=== PATIENT | female | born 1955 | race Caucasian/White ===

== ENCOUNTER 2021-05-24 03:02 | Day surgery (SDC) | payer BC, SELFPAY ==
[2021-05-18 09:22] VITALS: BMI 23.4
--- NOTE | 2021-05-21 11:52 | PM.IMHP ---
H&P: HPI History of Present Illness Date/Time: 05/21/21 11:52 65-year-old female patient of who presents today for arthroscopy of her right knee with partial medial meniscectomy and decompression of medial meniscal cyst. She has been having symptoms on off on this knee for several years. They have recently worsened. She was initially seen in the office on 02/19 after initial evaluation patient was found have some [id number] medial compartment arthritis but having significant symptoms in the medial compartment. She was sent for MRI scan of the knee. MRI scan shows complex tear posterior horn medial meniscus with a large meniscal cyst coming from the tear. Patient has been having symptoms on a daily basis. Treatment options were discussed with her. She felt she would like to proceed with arthroscopy for the tear of the medial meniscus as well as decompression the meniscal cyst. Chief Complaint: right knee medial menicus tear with meniscal cyst Review of Systems Review of Systems: All systems reviewed & are unremarkable except as noted in HPI and below PMFSH Social History Social History Smoking status: Never smoker Substance use: never Living arrangements: with family Gender identity (if verbalized by the patient): Female Sexual Orientation (if Verbalized by the Patient): Straight or Heterosexual Spiritual care concerns: No Meds Home Medications and Allergies Home Medications Medication Instructions Recorded Confirmed Type albuterol 90 mcg INHALATION Q2-3H PRN 05/18/21 05/18/21 History amlodipine 5 mg PO BID 05/18/21 05/18/21 History atorvastatin 10 mg PO DAILY 05/18/21 05/18/21 History cholecalciferol (vitamin D3) 1,000 unit PO DAILY 05/18/21 05/18/21 History [Vitamin D3] tramadol 50 mg PO 4-6XD PRN 05/18/21 05/18/21 History Allergies Allergy/AdvReac Type Severity Reaction Status Date / Time Sulfa (Sulfonamide AdvReac Severe Swelling Verified 05/18/21 09:11 Antibiotics) of Lip/Tongue/Throat MEPERIDINE HCL AdvReac Severe Nausea and Uncoded 05/18/21 09:12 Vomiting Exam Narrative: Exam Narrative: 65-year-old female alert pleasant. She is 5 ft 5 143 lb. She has a prominent start of limp. Range of motion of the right knee is from 0-135 degrees. There is no definite effusion. Moderately severe tenderness over the mid and posterior medial joint line. Mild to moderate pain with patellofemoral grind. Normal stability in the knee. Smita's testing causes her significant medial joint line pain. Hip range of motion, she flexes to 120 which caused her some posterior lateral hip pain, externally rotates to 40 internally rotates to 20 without discomfort. Stinchfield maneuver causes her some mild mid thigh pain. She has normal abduction strength in lateral position. 2+ dorsalis pedis and posterior tibial artery pulse. Resp: Auscultation: clear to auscultation bilaterally Cardio: Rate: regular rate Rhythm: regular rhythm Assessment and Plan Additional Plan 65-year-old female with a prominent tear of the posterior horn of the medial meniscus with a meniscal cyst. She is having symptoms on a regular basis. Dr. Calles discussed treatment options with her including surgical and nonsurgical treatment. She would like to proceed with arthroscopy with partial medial meniscectomy and decompression of the cyst. Surgical procedure as well as risks and complications were discussed in detail all questions were answered and we will proceed patient will avoid her Naprosyn and any other aspirin or ibuprofen products 1 week prior surgery she will see her primary care doctor for pre-surgical clearance.
[2021-05-24] VITALS (9 sets, daily range): BP systolic 92–151; BP diastolic 53–71; PULSE 44–57; RESP 9–18; TEMP 36.1–36.7; O2SAT 96–100
[2021-05-24] MEDS: LACTATED RINGERS 1,000 ML 30 ML IV CONT (10:45)
--- NOTE | 2021-05-24 10:45 | WPDANESEPPF ---
Anes - Initial Pre Proc Eval Procedure: Operation Date: 05/24/21 12:00 Proposed Procedures p Right Knee Arthroscopy, Partial Medial Meniscectomy, Decompression Meniscal Cyst, Proceed As Indicated - Carlo Calles MD Date/Time: 05/24/21 10:45 Surgeon: Carlo Calles MD Pre Op Diagnosis: Right medial meniscus tear Patient Data Age: 65 Gender: F Height: 1.65 m Weight: 64 kg Allergies Allergy/AdvReac Type Severity Reaction Status Date / Time meperidine AdvReac Severe Nausea and Verified 05/24/21 08:09 Vomiting Sulfa (Sulfonamide AdvReac Severe Swelling Verified 05/18/21 09:11 Antibiotics) of Lip/Tongue/Throat Home Medications Medication Instructions Recorded Confirmed Type albuterol 90 mcg INHALATION Q2-3H PRN 05/18/21 05/18/21 History amlodipine 5 mg PO BID 05/18/21 05/18/21 History atorvastatin 10 mg PO DAILY 05/18/21 05/18/21 History cholecalciferol (vitamin D3) 1,000 unit PO DAILY 05/18/21 05/18/21 History [Vitamin D3] tramadol 50 mg PO 4-6XD PRN 05/18/21 05/18/21 History Patient hx anesthesia problems: none Family hx anesthesia problems: none PMFSH Past Medical History Medical History (Updated 05/24/21 @ 10:46 by Shahid Resendiz DO) Asthma GERD (gastroesophageal reflux disease) Hyperlipidemia Hypertension IBS (irritable bowel syndrome) MVP (mitral valve prolapse) Surgical History Surgical History (Updated 05/24/21 @ 10:46 by Shahid Resendiz DO) History of History of hysterectomy Social History Social History Smoking status: Never smoker Substance use: never Living arrangements: with family Gender identity (if verbalized by the patient): Female Sexual Orientation (if Verbalized by the Patient): Straight or Heterosexual Spiritual care concerns: No Anes - Eval Final PreProcedure Day of Procedure 05/24/21 10:45 Patient weight: normal Heart: regular rate and rhythm Lungs: clear to auscultation and normal air movement Airway: Mallampati scale class II Neurological: alert and oriented Last oral intake: >/= 8 hours ASA classification: III Emergent: no Anesthetic plan: proceed Anesthesia type and monitoring: general LMA and standard monitoring Informed Consent: The patient's anesthetic plan and its attendant risks and benefits were discussed with the patient/family/POA. Questions were solicited and answers provided to the satisfaction of the patient/family/POA.
[2021-05-24] MEDS: ACETAMINOPHEN 500 MG TABLET 1000 MG PO (10:48)
[2021-05-24] MEDS: KETOROLAC 15 MG/ML VIAL (*BKC) IV PUSH (10:48)
--- NOTE | 2021-05-24 11:00 | WPDHPUPDATE1 ---
History and Physical Update Update Date/Time: 05/24/21 11:00 History and Physical has been reviewed, including an updated exam of the patient. There are NO changes in the patient's condition. Risks, benefits, and alternatives have been discussed and questions answered. Patient agrees to proceed with procedure.
--- NOTE | 2021-05-24 11:04 | SUR.PREOP ---
PT STATES SHE KNOWS HOW TO USE CRUTCHES
[2021-05-24] MEDS: ceFAZolin 2 GM/D5W 50 ML 2 GM/50 ML BAG IVPB (11:08)
[2021-05-24] MEDS: LIDO 1%/EPINEPHRINE 1:100,000 20 ML VIAL 30 ML INFILTRATE (11:44)
--- NOTE | 2021-05-24 12:09 | W.PM.PROC2 ---
Procedure Note - Detailed Date of Procedure 05/24/21 Pre-op Diagnosis Right medial meniscus tear, meniscal cyst Post-op Diagnosis same Procedure Performed arthroscopic partial medial meniscectomy left which included decompression of the meniscal cyst with the 3 5 shaver through the horizontal cleavage tear. 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 She received 2 g of Ancef preoperatively. The left leg was prepped draped usual fashion. 1% lidocaine with epinephrine was injected into the portal sites for postoperative analgesia. Standard arthroscopic portals were placed. We viewed the medial compartment 1st. There was moderate chondromalacia diffusely on the medial femoral condyle. There is minimal delamination which was minimally trimmed with a shaver. There was a complex tear of the posterior horn of the medial meniscus which had a radial component centrally. This involved more the inferior flap. Arthroscopic partial medial meniscectomy was carried out with alternating punch and motorized shaver viewing from the anterolateral portal. This was transitioned to the posterior root and transitioned to the midbody. This left the periphery of the meniscus with a horizontal cleavage but equal superior and inferior leaflets that were stable to probing. I estimate this was the peripheral 35% of the posterior horn of the meniscus. ACL looked normal. The arthroscope was placed in the anteromedial portal in the lateral compartment was completely normal. With the arthroscope in the anteromedial portal the 3.5 full-radius shaver was used to further transition the midbody. The meniscal cyst emanated from the most medial aspect of the horizontal cleavage tear and this was entered with the 3.5 full-radius shaver without difficulty through the medial aspect of the horizontal tear of the medial meniscus and we did a quick circumferential shaving of the opening to allow cyst decompression into the joint through the tear. The patellofemoral joint was evaluated and there was mild diffuse chondromalacia of the patella and the trochlea showed minimal diffuse chondromalacia in its distal aspect. There were no loose bodies in the joint. The portals were closed with 5 0 nylon suture. There were no complications.
[2021-05-24] MEDS: fentaNYL CITRATE INJ (*CRX) 100 MCG/2 ML VIAL 25 MCG IV PUSH ×2 (12:42→12:57)
[2021-05-24] MEDS: ONDANSETRON INJ 4 MG/2 ML VIAL IV PUSH (14:13)
== END 2021-05-24 14:30 | disposition home or self-care (01) ==
PROVIDERS: Visit Provider Orthopaedic Surgery
PROC: (CPT 29870; principal; 2021-05-24 12:00)
DX: M23.321 Other meniscus derangements, posterior horn of medial meniscus, right knee (principal); M23.006 Cystic meniscus, unspecified meniscus, right knee; M17.11 Unilateral primary osteoarthritis, right knee; M22.41 Chondromalacia patellae, right knee; I10 Essential (primary) hypertension; E78.5 Hyperlipidemia, unspecified; I34.1 Nonrheumatic mitral (valve) prolapse; K21.9 Gastro-esophageal reflux disease without esophagitis; J45.909 Unspecified asthma, uncomplicated; K58.9 Irritable bowel syndrome, unspecified; Z79.51 Long term (current) use of inhaled steroids
CPT/HCPCS: 29881; A9270; J0690; J1885; J2250; J2405; J2704; J3010; J7120

== ENCOUNTER 2023-04-03 09:04 | Outpatient (CLI) | payer MEDICARE, SELFPAY ==
--- NOTE | ~2023-04-03 | MR_ITS ---
EXAMINATION: MR shoulder LT wo con DATE: 04/03/2023 09:50 INDICATION: Nontraumatic incomplete tear of the left rotator cuff TECHNIQUE: Magnetic resonance imaging (MRI) of the left shoulder was performed without intravenous co ntrast. Sequences included axial PD-weighted FS FSE, coronal oblique PD-weighted FS FSE, coronal obli que T2-weighted FS FSE, sagittal PD-weighted FS FSE, and sagittal T1-weighted SE. COMPARISON: None. FINDINGS: Coracoacromial arch: The acromion undersurface is flat in morphology (type I). The coracoacromial ligament is normal. Mild acromioclavicular osteoarthritis. Rotator cuff: There are suture anchors along the greater tuberosity consistent with prior rotator cuff repair. The repair appears grossly intact with no evident tear defect or retracted tear margin to suggest a recur rent tear. There is moderate supraspinatus and mild infraspinatus tendinopathy. The teres minor tendo n is normal. Minimal subscapularis tendinopathy without tear. Normal rotator cuff muscle bulk and sig nal. Biceps tendon, glenoid labrum and glenohumeral cartilage: Tenodesis of the long head biceps tendon with anchor site located along the proximal most diaphysis c audal to the intertubercular groove. There is a tear of the posterior glenoid labrum beginning at the 11:00 position and extending inferiorly to the 7:00 position. Additional small tear at the 5:00-4:00 position of the anteroinferior labrum. Small region of partial-thickness chondral ulceration with de ep fissuring at the apex and anteroapical aspect of the humeral head. Additional small deep chondral fissure at the superomedial aspect of the humeral head. Glenoid cartilage appears relatively preserve d with tiny marginal osteophytes along the inferior glenoid. Fluid: Minimal glenohumeral joint effusion. No loose osteochondral bodies. No abnormal fluid signal in the s ubacromial/subdeltoid bursa to suggest bursitis. Bones: Normal marrow signal with no edema, fracture or pathologic marrow replacing process. IMPRESSION: 1. Changes of an intact appearing rotator cuff repair likely of the supraspinatus tendon with moderat e residual tendinopathy and potentially of the anterior infraspinatus tendon where there is mild tend inopathy. 2. Bicipital tenodesis. 3. Labral tear most extensive along much of the posterior glenoid with additional small tear anteroin feriorly. 4. Mild glenohumeral osteoarthritis with moderate grade chondromalacia along portions of the humeral head. Reviewed, dictated and finalized at location A. IMPRESSION: 1. Changes of an intact appearing rotator cuff repair likely of the supraspinat us tendon with moderate residual tendinopathy and potentially of the anterior i nfraspinatus tendon where there is mild tendinopathy. 2. Bicipital tenodesis. 3. Labral tear most extensive along much of the posterior glenoid with addition al small tear anteroinferiorly. 4. Mild glenohumeral osteoarthritis with moderate grade chondromalacia along po rtions of the humeral head.
== END 2023-04-03 09:05 | disposition home or self-care (01) ==
DX: M75.112 Incomplete rotator cuff tear or rupture of left shoulder, not specified as traumatic (principal); M75.22 Bicipital tendinitis, left shoulder; M19.012 Primary osteoarthritis, left shoulder
CPT/HCPCS: 73221

== ENCOUNTER 2025-03-06 12:53 | Outpatient (CLI) | payer MEDICARE, SELFPAY ==
--- NOTE | ~2025-03-06 | MR_ITS ---
MRI of the left knee Clinical history: Pain Technique: Coronal proton density and proton density-weighted images, sagittal proton-density and T2 fat-sat images, and axial proton-density fat-saturated images were acquired. Findings: Anterior and posterior cruciate ligaments are intact. Medial collateral ligament and the la teral collateral ligament complex are intact. Popliteus tendon is intact. There is oblique tear of the posterior horn of the medial meniscus. Lateral meniscus intact. Articular cartilage is relatively well preserved throughout the knee. Bone marrow signals are unremar kable. Extensor mechanism is intact. Small joint effusion present. No Cornelius's cyst. Impression: Oblique tear of the posterior horn of the medial meniscus. Small joint effusion. Reviewed, dictated and finalized at location . Impression: Oblique tear of the posterior horn of the medial meniscus. Small joint effusion.
== END 2025-03-06 12:54 | disposition home or self-care (01) ==
PROVIDERS: Visit Provider Orthopaedic Surgery
DX: M25.462 Effusion, left knee (principal); S83.242A Other tear of medial meniscus, current injury, left knee, initial encounter; X58.XXXA Exposure to other specified factors, initial encounter
CPT/HCPCS: 73721

== ENCOUNTER 2025-05-08 01:13 | Day surgery (SDC) | payer MEDICARE, SELFPAY ==
[2025-04-29 12:41] VITALS: BMI 24.2
--- NOTE | 2025-04-29 12:52 | PC.NURSE ---
Report to the Outpatient Waiting Room, entrance under the green pavilion located off [facility], at time __10:00am on date __05/08/25 . Planned Procedure Time: _12:00pm .? Time changes happen often and if your time is changed the preop area will call you the afternoon before. - You and your visitor will be asked to self-screen and do not enter if you have any COVID symptoms. Please call surgeon if you need to reschedule. - A mask is optional within the hospital at this time. Patients may have clear liquids (water, carbonated beverages, clear teas, apple juice) until 3 hours prior to surgery with a maximum of 20 ounces. - No food from midnight until time of surgery and no smoking, or chewing tobacco (or any form of nicotine). No chewing gum, candy or mints. (09:00am) Take only the following medications with a SIP of water on the morning of surgery: Amlodipine, Tramadol if needed, Tyelenol if needed DO NOT STOP ANY OF YOUR OTHER PRESCRIPTION MEDICATIONS PRIOR TO SURGERY EXCEPT THE FOLLOWING Hold all vitamins and supplements for 3 days per anesthesiologist. Date to take dose is 05/04/25 Medications to discontinue per physician Meloxicam and Aspirin for [address] Vargas Date to take last dose 04/29/25 Please no make-up, nail slovenian, hairspray, perfume, deodorant, or body powder the day of surgery.? No jewelry (including any body piercings) or valuables the day of surgery, leave them at home.? Please take a shower or bath the night before, or the morning of, surgery with an antibacterial soap.? Wear comfortable, loose fitting clothing.? - Jewelry must be removed prior to entering the operating room.? Rings and piercings that are not removed may be cut off. - The hospital will not accept responsibility for valuables.? - Please leave all valuables, including medications, at home the day of surgery. If you are going home after surgery, a licensed peg driver must drive you home.? - NO public transportation without another adult if you receive anesthesia. - We recommend that an adult stay with you for 24 hours following discharge. - We also recommend that you do not drive, make important decision, drink alcoholic beverages, or take any drugs that were not prescribed by your health care provider for at least 24 hours after your discharge time. Follow any additional instructions given to you from your surgeon. Telephone instructions given to ___Patient and asked if any additional questions and then verbalized understanding. Patient advised to call surgeon office or pre surgery nurse liaison [phone] if any additional questions.
--- NOTE | 2025-05-07 11:53 | PM.IMHP ---
H&P: HPI History of Present Illness Date/Time: 05/07/25 11:53 Chief Complaint: Medial meniscus tear left knee Narrative: 69-year-old female who presents today for arthroscopy of her left knee with partial medial meniscectomy proceed as indicated. Patient has been having symptoms in the left knee for more than 6 months. She did not have a specific injury. At the onset of her symptoms she was playing pickle ball multiple times a week. She developed spontaneous onset of pain and swelling in the knee. She was initially treated with cortisone injection as well as anti-inflammatory. He get some benefit from these but not complete. Patient at this point is still having pain in the left knee. She is having episodes of catching or locking type sensations in the knee. She has had an MRI scan which shows a complex tear of the medial meniscus with possible flap component. The option of arthroscopy to the left knee was discussed and patient feels at this point because she has not had significant improvement of her symptoms she would like to proceed. Review of Systems Review of Systems: All systems reviewed & are unremarkable except as noted in HPI and below PMFSH Past Medical History Medical History PFO (patent foramen ovale) IBS (irritable bowel syndrome) GERD (gastroesophageal reflux disease) Asthma MVP (mitral valve prolapse) Hyperlipidemia Hypertension Surgical History Surgical History Hx of tonsillectomy History of shoulder surgery left History of arthroscopy of right knee History of hysterectomy History of Family History Family History Mother Hypertension Kidney failure Father Lung cancer Social History Social History Smoking status: Never smoker Alcohol intake: never Substance use: never Current Housing: Decline to Answer Concerned About Future Housing: Decline to Answer Difficulty Paying Gas/Electric Bills: Decline to Answer Difficulty Paying for Meds: Decline to Answer Currently Unemployed: Decline to Answer Education: Decline to Answer Difficulty w/ Childcare or Family Care: Decline to Answer Living arrangements: with family Additional living arrangements comments: Occupation/Education: retired Gender identity (if verbalized by the patient): Female Sexual Orientation (if Verbalized by the Patient): Straight or Heterosexual Spiritual care concerns: No Meds Home Medications and Allergies Home Medications ?Medication ?Instructions ?Recorded ?Confirmed ?Type albuterol 90 mcg/actuation aerosol 90 mcg inhalation Q2-3H PRN 05/18/21 04/29/25 History inhaler Shortness Of Breath amlodipine 5 mg tablet 5 mg PO BID 05/18/21 04/29/25 History cholecalciferol (vitamin D3) 25 1,000 unit PO DAILY 05/18/21 04/29/25 History mcg (1,000 unit) capsule (Vitamin D3) losartan 25 mg tablet 25 mg PO DAILY 05/08/24 04/29/25 History omeprazole 20 mg capsule,delayed 20 mg PO DAILY 05/08/24 04/29/25 History release meloxicam 15 mg tablet 15 mg PO DAILY #30 tabs 02/19/25 04/29/25 Rx aspirin 81 mg tablet,delayed 81 mg PO DAILY 04/29/25 04/29/25 History release (Oli Low Dose Aspirin) rosuvastatin 5 mg tablet 5 mg PO DAILY 04/29/25 04/29/25 History tramadol 50 mg tablet 50 mg PO Q6-8H PRN pain 04/29/25 04/29/25 History Allergies Allergy/AdvReac Type Severity Reaction Status Date / Time Sulfa (Sulfonamide Allergy Severe Swelling Verified 04/29/25 12:33 Antibiotics) of Lip/Tongue/Throat meperidine AdvReac Severe Nausea and Verified 04/29/25 12:33 Vomiting Exam Narrative: 69-year-old female alert pleasant. BMI is 24.2. She has a mild effusion left knee. Severe mid and posterior medial joint line tenderness. No tenderness over the medial tibial plateau or medial femoral condyle. Range of motion is from 0-140 degrees. Hip range of motion is full without discomfort. Smita's testing causes her diffuse pain. She has normal stability in the knee. 2+ dorsalis pedis pulse in her foot. No edema in lower extremities Resp: Auscultation: clear to auscultation bilaterally Cardio: Rate: regular rate Rhythm: regular rhythm Assessment and Plan Assessment and plan (1) Medial meniscus tear: Qualifiers: Tear current or old: current Encounter type: subsequent encounter Meniscus tear of knee type: complex Laterality: left Qualified Code(s): S83.232D - Complex tear of medial meniscus, current injury, left knee, subsequent encounter Code(s): S83.249A - Other tear of medial meniscus, current injury, unspecified knee, initial encounter Status: Acute Assessment and Plan: 69-year-old female who is a tear of the medial meniscus with continued symptoms in left knee for over 6 months. At this point she is getting a catch type sensation which may be coming from the flap component. She has had a cortisone injection earlier this year and has been on anti-inflammatories without significant improvement of her symptoms. Arthroscopic surgery was discussed and patient would like to proceed with that at this time. Surgical procedures well as the risks and complications were discussed in detail questions were answered we will proceed. Patient has a history of mitral valve prolapse so she will remain on her baby aspirin through the time surgery. She will see her primary care doctor for pre-surgical clearance.
[2025-05-08] VITALS (9 sets, daily range): BP systolic 125–158; BP diastolic 59–76; PULSE 55–67; RESP 11–18; TEMP 36–36.4; O2SAT 60–100; BMI 24.2
[2025-05-08] MEDS: ACETAMINOPHEN 500 MG TABLET 1000 MG PO (10:15)
[2025-05-08] MEDS: KETOROLAC 15 MG/ML VIAL (*BKC) IV PUSH (10:45)
--- NOTE | 2025-05-08 11:05 | WPDANESEPPF ---
Anes - Initial Pre Proc Eval Procedure: Operation Date: 05/08/25 12:00 Proposed Procedures p Left Knee Arthroscopy, Partial Medial Meniscectomy, Proceed As Indicated - Carlo Calles MD Date/Time: 05/08/25 11:05 Surgeon: Carlo Calles MD Pre Op Diagnosis: left knee medial meniscus tear Patient Data Age: 69 Gender: F Height: 1.65 m Weight: 66.1 kg Last Vital Signs Temp 97.5 F L 05/08/25 10:54 Pulse 55 L 05/08/25 10:54 BP 135/76 05/08/25 10:54 Pulse Ox 100 05/08/25 10:54 O2 Del Method Room Air 05/08/25 10:54 Allergies Allergy/AdvReac Type Severity Reaction Status Date / Time Sulfa (Sulfonamide Allergy Severe Swelling Verified 05/08/25 10:52 Antibiotics) of Lip/Tongue/Throat meperidine AdvReac Severe Nausea and Verified 05/08/25 10:52 Vomiting Home Medications ?Medication ?Instructions ?Recorded ?Confirmed ?Type albuterol 90 mcg/actuation aerosol 90 mcg inhalation Q2-3H PRN 05/18/21 04/29/25 History inhaler Shortness Of Breath amlodipine 5 mg tablet 5 mg PO BID 05/18/21 05/08/25 History cholecalciferol (vitamin D3) 25 1,000 unit PO DAILY 05/18/21 04/29/25 History mcg (1,000 unit) capsule (Vitamin D3) losartan 25 mg tablet 25 mg PO DAILY 05/08/24 05/08/25 History omeprazole 20 mg capsule,delayed 20 mg PO DAILY 05/08/24 05/08/25 History release meloxicam 15 mg tablet 15 mg PO DAILY #30 tabs 02/19/25 04/29/25 Rx aspirin 81 mg tablet,delayed 81 mg PO DAILY 04/29/25 04/29/25 History release (Oli Low Dose Aspirin) rosuvastatin 5 mg tablet 5 mg PO DAILY 04/29/25 04/29/25 History tramadol 50 mg tablet 50 mg PO Q6-8H PRN pain 04/29/25 04/29/25 History Patient hx anesthesia problems: none Family hx anesthesia problems: none Results Review: All pre-operative results and documents have been reviewed as part of the pre-operative evaluation. [facility] Past Medical History Medical History PFO (patent foramen ovale) IBS (irritable bowel syndrome) GERD (gastroesophageal reflux disease) Asthma MVP (mitral valve prolapse) Hyperlipidemia Hypertension Surgical History Surgical History Hx of tonsillectomy History of shoulder surgery left History of arthroscopy of right knee History of hysterectomy History of Family History Family History Mother Hypertension Kidney failure Father Lung cancer Social History Social History Smoking status: Never smoker Alcohol intake: never Substance use: never Current Housing: Decline to Answer Concerned About Future Housing: Decline to Answer Difficulty Paying Gas/Electric Bills: Decline to Answer Difficulty Paying for Meds: Decline to Answer Currently Unemployed: Decline to Answer Education: Decline to Answer Difficulty w/ Childcare or Family Care: Decline to Answer Living arrangements: with family Occupation/Education: retired Gender identity (if verbalized by the patient): Female Sexual Orientation (if Verbalized by the Patient): Straight or Heterosexual Spiritual care concerns: No Anes - Eval Final PreProcedure Day of Procedure 05/08/25 11:05 Patient weight: normal Lungs: normal air movement Airway: Mallampati scale class II Neurological: alert and oriented Last oral intake: >/= 8 hours ASA classification: III Emergent: no Anesthetic plan: proceed Anesthesia type and monitoring: general LMA and standard monitoring Results Review: All pre-operative results and documents have been reviewed as part of the pre-operative evaluation. HTN, hyperlipidemia, hx of PFO but [place] [address] Seymour. Asthma stable of recent. Informed Consent: The patient's anesthetic plan and its attendant risks and benefits were discussed with the patient/family/POA. Questions were solicited and answers provided to the satisfaction of the patient/family/POA.
--- NOTE | 2025-05-08 11:29 | WPDHPUPDATE1 ---
History and Physical Update Update Date/Time: 05/08/25 11:29 History and Physical has been reviewed, including an updated exam of the patient. There are NO changes in the patient's condition. Risks, benefits, and alternatives have been discussed and questions answered. Patient agrees to proceed with procedure.
[2025-05-08] MEDS: ceFAZolin 2 GM/D5W 50 ML 2 GM/50 ML BAG IVPB (12:02)
[2025-05-08] MEDS: LIDO 1%/EPINEPHRINE 1:100,000 20 ML VIAL INFILTRATE (12:35)
--- NOTE | 2025-05-08 12:58 | P.OP_ITS ---
Procedure Note - Detailed Date of Procedure 05/08/25 Pre-op Diagnosis left knee medial meniscus tear, Post-op Diagnosis Same (Left knee medial meniscus tear, chondromalacia medial femoral condyle, chondromalacia patella) Procedure Performed Arthroscopic partial medial meniscectomy left knee Surgeon Carlo Calles MD Neurosurgery Spine Physician Lucas Delatorre Anesthesia General Description of Procedure Patient was brought to the operating room and general anesthesia was administered. She received 2 g of Ancef preoperatively. The left knee was prepped draped usual fashion. There is a mild effusion palpable. 1% lidocaine with epinephrine was injected into the subcutaneous locations of the portals and injected into the knee joint itself for intraoperative hemostasis. Superomedial portal placed. Anterolateral portal placed the arthroscope in the medial compartment. There was low-grade thickness chondromalacia lateral portion of the medial femoral condyle weight-bearing area. This involved less than 50% thickness no high-grade lesions noted. The area had fibrillation. The tear of the posterior horn of the medial meniscus was identified. There was a small flap tear based at the root proximally 5 or 6 mm thick. There was a superficial radial tear of the superior leaflet of the posterior horn. Horizontal cleavage tear noted. Maceration of the inferior leaflet posterior horn. Arthroscopic partial medial meniscectomy was performed using alternating punch and motorized shaver conservatively resecting the entire flap component and then resecting some of the macerated inferior leaflet central posterior horn and resection was contoured for a smooth contour and transition. ACL and PCL looked normal. Lateral compartment looked normal. Arthroscope was placed in the patellofemoral joint. The trochlear articular cartilage looked normal for age. There was moderate chondromalacia of the patella. No delaminating flaps noted. Therefore this was left alone. The scope was placed in the anteromedial portal viewing the partial medial meniscectomy result. Additional contouring at junction of posterior horn and midbody was performed with the small motor a shaver completing the procedure. Portals were closed with 5 0 nylon suture and a soft bulky dressing applied the patient transferred to postop recovery room stable condition. [facility] Billing Surgery - Charge Forward: Surgery Billing (Arthroscopic partial medial meniscectomy left knee)
[2025-05-08] MEDS: LACTATED RINGERS 1,000 ML 30 ML IV CONT (13:00)
[2025-05-08] MEDS: fentaNYL CITRATE INJ (*CRX) 100 MCG/2 ML VIAL 25 MCG IV PUSH ×3 (13:19→13:45)
[2025-05-08] MEDS: ONDANSETRON INJ 4 MG/2 ML VIAL IV PUSH (14:17)
[2025-05-08] MEDS: diphenhydrAMINE HCl INJ 50 MG/ML VIAL 12.5 MG IV PUSH (15:11)
--- NOTE | 2025-05-08 15:24 | SUR.PHASEII ---
RN offered patient second dose of diphenhydramine for nausea with movement and patient declined. Stated she would rather just go home and rest in her own bed.
== END 2025-05-08 15:34 | disposition home or self-care (01) ==
PROVIDERS: Visit Provider Orthopaedic Surgery
PROC: (CPT 29870; principal; 2025-05-08 12:00)
DX: S83.242A Other tear of medial meniscus, current injury, left knee, initial encounter (principal); M67.52 Plica syndrome, left knee; M94.262 Chondromalacia, left knee; X58.XXXA Exposure to other specified factors, initial encounter
CPT/HCPCS: 29881; A9270; J0690; J1100; J1200; J1885; J2003; J2004; J2250; J2405; J2704; J3010; J7120

== ENCOUNTER 2025-05-11 21:55 | Emergency (ER) | payer MEDICARE, SELFPAY ==
[2025-05-11] VITALS (8 sets, daily range): BP systolic 152–187; BP diastolic 63–76; PULSE 57–70; RESP 11–19; TEMP 36.3; O2SAT 95–100
--- NOTE | ~2025-05-11 | XR_ITS ---
Portable chest x-ray Comparison: 03/31/2016 Clinical History: Chest pain Findings: Lungs are clear, without focal consolidation or pleural effusion. Cardiomediastinal silho uette is prominent. Stable presumed ASD closure device. Bones and soft tissues are unremarkable. Impression: Clear lungs. Probable cardiomegaly with a stable presumed ASD closure device. Reviewed, dictated and finalized at location . Impression: Clear lungs. Probable cardiomegaly with a stable presumed ASD closure device.
--- NOTE | ~2025-05-11 | CT_ITS ---
CT of the Abdomen and Pelvis: Indication: Abdominal pain Technique: 2.5 mm axial scans were obtained through the abdomen and pelvis following intravenous adm inistration of 100 cc of Omnipaque 350. Dose reduction technique was used on this scan by utilizing a utomated exposure control and iterative reconstruction technique. The dose-length product (DLP) was 4 00.44 mGy-cm. Findings: Scans through the lung bases are unremarkable. The liver, spleen, pancreas, gallbladder, adrenals and kidneys are within normal limits. No evidence of aortic aneurysm. No lymphadenopathy. No bowel obstruction or bowel wall thickening. There is no evidence to suggest acute appendicitis. Images through the pelvis were performed. Urinary bladder unremarkable. Status post hysterectomy. No pelvic mass seen. No ascites. Impression: No significant abnormalities seen. Reviewed, dictated and finalized at [facility]. Impression: No significant abnormalities seen.
[2025-05-11 22:20] LABS: Basophils Absolute Auto 0.1 K/mm3 (0.0-0.1); Basophils Percent Auto 1.5 % (0.2-1.2); Eosinophils Absolute Auto 0.3 K/mm3 (0-0.3); Eosinophils Percent Auto 3.8 % (0-4.4); Hematocrit 41.2 % (37.0-47.0); Hemoglobin 13.6 g/dL (12.0-15.0); Immature Granulocyte Absolute 0.02 K/mm3 (0.00-0.031); Immature Granulocyte Percent A 0.2 % (0-0.5); Lymphocytes Absolute Auto 3.58 K/mm3 (0.9-3.2); Lymphocytes Percent Auto 40.5 % (18.3-44.2); Mean Corpuscular Hemoglobin 28.5 pg (26-34); Mean Corpuscular Volume 86.2 fl (80-100); Mean Platelet Volume 11.2 fl (7.4-10.4); Monocytes Absolute Auto 0.6 K/mm3 (0.1-0.6); Monocytes Percent Auto 7.1 % (2.6-8.5); Neutrophils Absolute Auto 4.2 K/mm3 (1.3-6.7); Neutrophils Percent Auto 46.9 % (45.5-73.1); Platelet Count Result 319 k/mm3 (150-375); Red Blood Count 4.78 M/mm3 (4.2-5.4); Red Cell Distribution Width 12.9 % (11.5-14.5); White Blood Count 8.9 K/mm3 (4.5-10.0)
[2025-05-11 22:25] LABS: Add Urine Microscopic? YES; Appearance Urine Cloudy (Clear); Bacteria Urine None Seen /hpf; Bilirubin Urine Negative (Negative); Blood Urine Negative (Negative); Color Urine Yellow (Yellow); Glucose Urine UA Negative (Negative); Ketones Urine Negative (Negative); Leukocyte Esterase Ur 3+ LEU/UL (Negative); Nitrate Urine Negative (Negative); Non Pathogenic Casts 0-2; Protein Urine Negative (Negative); RBC Urine 0-2 /hpf (0-2); Specific Grav Ur 1.014 (1.001-1.035); Squamous Epithelial Cell Urine None Seen /hpf (Few); Urobilinogen Urine 0.2 mg/dL (<2.0); WBC Urine >100 /hpf (0-3)
[2025-05-11 22:32] LABS: Alanine Aminotransferase 21 U/L (6-35); Albumin Level 4.8 g/dL (3.5-5.1); Alkaline Phosphatase 67 U/L (38-126); Anion Gap 11 mmol/L (4-12); Aspartate Amino Transferase 31 U/L (14-36); Bilirubin,Total 0.4 mg/dL (0.2-1.3); Blood Urea Nitrogen 18 mg/dL (7-17); Calcium 9.6 mg/dL (8.4-10.2); Carbon Dioxide 27 mmol/L (22-30); Chloride 102 mmol/L (98-107); Estimated CRCL calculation 55 ml/min; Estimated Glomerular Filt Rate > 60; Glucose 98 mg/dL (65-110); Lipase 83 U/L (23-300); Potassium 3.5 mmol/L (3.4-5.0); Sodium 140 mmol/L (137-145); Total Protein 7.9 g/dL (6.3-8.2)
--- NOTE | 2025-05-11 22:34 | ECG_ITS ---
Test Date: 2025-05-11 22:45:08 Measurements Intervals [place] Rate: 65 P: 50 [place]: 144 QRS: 29 QRSD: 147 T: 20 QT: 443 QTc: 462 Interpretive Statements SINUS RHYTHM POSSIBLE LEFT ATRIAL ENLARGEMENT RIGHT BUNDLE BRANCH BLOCK BASELINE ARTIFACT- I, II, III, AVR, AVL, AVF, 1, V4-V6 ABNORMAL ECG No previous ECG available for comparison Electronically Signed On 05-12-2025 06:20:36 CDT by Nghia Lira D.O.
--- NOTE | 2025-05-11 22:35 | ED_ITS ---
HPI - Abdominal Pain General Chief Complaint: Abdominal Pain Stated Complaint: RUQ PAIN SINCE 2029 TONIGHT Time Seen by Provider: 05/11/25 21:59 Source: patient and family Mode of arrival: ambulatory Limitations: no limitations History of Present Illness HPI narrative: Patient presents with right upper beginning at 8:30 p.m.. She states that it feels like it is at her liver and pushing upwards. This has never happened before. She denies any nausea, vomiting, fevers, chills. She has never had any abdominal surgeries including no cholecystectomy or appendectomy. She does not have shortness of breath but does state that she has a little cough. Her last bowel movement was Monday and she denies any diarrhea although she has been a bit constipated. Denies any bloody stools. Last oral intake was 2:00 p.m. and otherwise her appetite has been okay. She underwent laparoscopic surgery yesterday on her knee and is currently on antibiotics due to that. Has not taken any medications for this pain so far. Related Data Home Medications ?Medication ?Instructions ?Recorded ?Confirmed ?Last Taken ?Type amlodipine 5 mg tablet 5 mg PO BID 05/18/21 05/11/25 05/08/25 History cholecalciferol (vitamin D3) 25 1,000 unit PO DAILY 05/18/21 05/11/25 Unknown History mcg (1,000 unit) capsule (Vitamin D3) losartan 25 mg tablet 25 mg PO DAILY 05/08/24 05/11/25 05/07/25 History omeprazole 20 mg capsule,delayed 20 mg PO DAILY 05/08/24 05/11/25 05/07/25 History release aspirin 81 mg tablet,delayed 81 mg PO DAILY 04/29/25 05/11/25 Unknown History release (Oli Low Dose Aspirin) rosuvastatin 5 mg tablet 5 mg PO DAILY 04/29/25 05/11/25 Unknown History Allergies Allergy/AdvReac Type Severity Reaction Status Date / Time Sulfa (Sulfonamide Allergy Severe Swelling Verified 05/11/25 21:56 Antibiotics) of Lip/Tongue/Throat meperidine AdvReac Severe Nausea and Verified 05/11/25 21:56 Vomiting PMFSH Past Medical History Medical History Tear of medial meniscus of left knee PFO (patent foramen ovale) IBS (irritable bowel syndrome) GERD (gastroesophageal reflux disease) Asthma MVP (mitral valve prolapse) Hyperlipidemia Hypertension Surgical History Surgical History S/P arthroscopic partial medial meniscectomy of left knee 05/08/25: Dr Calles Hx of tonsillectomy History of shoulder surgery left History of arthroscopy of right knee History of hysterectomy History of Family History Family History Mother Hypertension Kidney failure Father Lung cancer Social History Social History Smoking status: Never smoker Alcohol intake: never Substance use: never Current Housing: Decline to Answer Concerned About Future Housing: Decline to Answer Difficulty Paying Gas/Electric Bills: Decline to Answer Difficulty Paying for Meds: Decline to Answer Currently Unemployed: Decline to Answer Education: Decline to Answer Difficulty w/ Childcare or Family Care: Decline to Answer Living arrangements: with family Additional living arrangements comments: Occupation/Education: retired Gender identity (if verbalized by the patient): Female Sexual Orientation (if Verbalized by the Patient): Straight or Heterosexual Spiritual care concerns: No Exam 2 Narrative: GENERAL: Well-appearing, well-nourished, and in no acute distress. HEAD: Normocephalic, atraumatic. EYES: Non injected, non icteric ENT: Nares clear, no rhinorrhea or epistaxis. Gross auditory acuity intact. NECK: Supple. No meningismus. CHEST: Speaking in full sentences. No respiratory distress. Mild TTP R lower chest. HEART: Regular rate and rhythm. . ABDOMEN: Soft, nondistended. RUQ TTP. No rigidity/guarding. Not peritoneal. Alarcon sign positive. SKIN: Warm, dry, no rash. NEURO: No focal deficits. Alert and oriented. Answering questions. Following commands. Normal speech without aphasia or dysarthria. PSYCH: Normal mood and affect. Course Vital Signs Vital signs: Vital Signs Temperature 97.4 F L 05/11/25 21:59 Pulse Rate 70 05/11/25 21:59 Respiratory Rate 15 05/11/25 21:59 Blood Pressure 187/70 H 05/11/25 21:59 Pulse Oximetry 100 05/11/25 21:59 Oxygen Delivery Room Air 05/11/25 21:59 Temperature 97.6 F 05/12/25 03:24 Pulse Rate 51 L 05/12/25 03:24 Respiratory Rate 11 L 05/12/25 03:24 Blood Pressure 136/67 05/12/25 03:24 Pulse Oximetry 95 05/12/25 03:24 Oxygen Delivery Room Air 05/11/25 21:59 MDM - Abdominal Pain MDM Narrative Medical decision making narrative: Patient presents with right upper quadrant pain beginning at 8:30 p.m.. No prior abdominal surgeries. States she feels like it is at her liver and radiating/pushing upwards into her chest. In the emergency department she is afebrile with vital signs notable for hypertension. Patient recently underwent surgery so her risk for PE is slightly increased. Alternatively, postoperative pneumonia considered. CBC without leukocytosis. No anemia. Pyuria on UA however currently on a course of cephalexin postoperatively from knee surgery so will not add alternative antibiotics and will await culture. US not available overnight. BNP mildly elevated but not to a degree to suggest acute heart failure. Patient reassessed at 12:45 a.m. she reports she is feeling much better. Attempted to perform point of care ultrasound right upper quadrant at bedside however limitations due to the diffuse bowel gas pattern. Repeat troponin normal. CT with evidence of pancreatic cyst but otherwise unremarkable. In sum This patient presents with abdominal pain or unclear etiology. A CT scan was performed to evaluate for potential causes of the abdominal pain, however, neither the clinical exam nor the CT has identified an emergent etiology for the abdominal pain. I have a very low suspicion for appendicitis, ischemic bowel, bowel perforation, or any other life threatening disease. I have discussed with the patient the level of uncertainty with undifferentiated abdominal pain and explained the need to follow-up as noted on the discharge instructions, or return to the Emergency Department immediately if the pain worsens, develops fever, persistent and uncontrolled vomiting, or for any new symptoms or concerns. Stable for discharge. Given she is on narcotic medication postoperatively from knee surgery, I did recommend a bowel regimen this was prescribed ranging from stool softeners to laxatives if needed. Differential Diagnosis Differential diagnosis: Likely abdominal pain, constipation, diverticulitis, pancreatitis and other (Pulmonary embolism, ACS , pneumonia) Lab Data Attestation: I reviewed the patient's lab results. Lab results narrative: Magnesium within normal limits (considered hypomagnesemia due to appearance of some complexes on EKG) 05/11/25 22:13 05/11/25 22:13 Labs: Lab Results 05/11/25 05/11/25 05/12/25 Range/Units 22:12 22:13 01:31 WBC 8.9 (4.5-10.0) K/mm3 RBC 4.78 (4.2-5.4) M/mm3 Hgb 13.6 (12.0-15.0) g/dL Hct 41.2 (37.0-47.0) % MCV 86.2 (80-100) fl MCH 28.5 (26-34) pg MCHC 33.0 (32-36) g/dl RDW 12.9 (11.5-14.5) % Plt Count 319 (150-375) k/mm3 MPV 11.2 H (7.4-10.4) fl Immature Gran % (Auto) 0.2 (0-0.5) % Neut % (Auto) 46.9 (45.5-73.1) % Lymph % (Auto) 40.5 (18.3-44.2) % [place] % (Auto) 7.1 (2.6-8.5) % Eos % (Auto) 3.8 (0-4.4) % Baso % (Auto) 1.5 H (0.2-1.2) % Lymph # (Auto) 3.58 H (0.9-3.2) K/mm3 [place] # (Auto) 0.6 (0.1-0.6) K/mm3 Eos # (Auto) 0.3 (0-0.3) K/mm3 Baso # (Auto) 0.1 (0.0-0.1) K/mm3 Abs Immat Gran (auto) 0.02 (0.00-0.031) K/mm3 Absolute Neuts (auto) 4.2 (1.3-6.7) K/mm3 Absolute Nucleated RBC 0.000 (0.0-0.012) K/mm3 Nucleated RBC % 0.0 (0.0-0.2) % D-Dimer 0.40 (<0.48) ug/mL Sodium 140 (137-145) mmol/L Potassium 3.5 (3.4-5.0) mmol/L Chloride 102 (98-107) mmol/L Carbon Dioxide 27 (22-30) mmol/L Anion Gap 11 (4-12) mmol/L BUN 18 H (7-17) mg/dL Creatinine 0.77 (0.7-1.0) mg/dL Estim Creat Clear Calc 55 ml/min Estimated GFR > 60 (59 - ) Glucose 98 (65-110) mg/dL Calcium 9.6 (8.4-10.2) mg/dL Magnesium 2.0 (1.6-2.3) mg/dL Total Bilirubin 0.4 (0.2-1.3) mg/dL AST 31 (14-36) U/L ALT 21 (6-35) U/L Alkaline Phosphatase 67 (38-126) U/L Troponin I < 0.012 < 0.012 (0.000-0.034) ng/mL NT-Pro-B Natriuret Pep 160 H (19.9-100) pg/mL Total Protein 7.9 (6.3-8.2) g/dL Albumin 4.8 (3.5-5.1) g/dL Lipase 83 (23-300) U/L Urine Color Yellow (Yellow) Urine Appearance Cloudy H (Clear) Urine pH 6.0 (5.0-9.0) Ur Specific [place] 1.014 (1.001-1.035) Urine Protein Negative (Negative) mg/dL Urine Glucose (UA) Negative (Negative) mg/dL Urine Ketones Negative (Negative) mg/dL Ur Blood (Man) Negative (Negative) Urine Nitrate Negative (Negative) Urine Bilirubin Negative (Negative) Urine Urobilinogen 0.2 (<2.0) mg/dL Leukocyte Esterase Rfl 3+ H (Negative) HENRY/UL Urine RBC 0-2 (0-2) /hpf Urine WBC >100 H (0-3) /hpf Ur Squamous Epith Cells None seen (Few) /hpf Urine Bacteria None seen /hpf Urine Casts 0-2 Imaging Data Attestation: I personally reviewed and interpreted this imaging study as follows: My impression: Borderline cardiomegaly on my independent interpretation of CXR (especially compared to previous) with some haziness/infiltrate, Radiologist's impression: ITS Impressions Chest X-Ray 05/12/25 05:16 Impression: Clear lungs. Probable cardiomegaly with a stable presumed ASD closure device. Abdomen/Pelvis CT 05/12/25 05:17 Impression: No significant abnormalities seen. CT Abd and Pelvis STat Rad: 5 mm cyst of the uncinate process versus prominent accessory duct, image 71. The remaining solid organs are within normal limits. No bowel obstruction. Normal appendix. No fracture Regarding the pancreatic head cyst. Recommend a contrast enhanced, pancreas protocol abdominal CT or MR in 2 years. No incidental findings ECG Data EKG #1: Attestation: I personally reviewed and interpreted this ECG as follows: ECG completion date: 05/11/25 ECG completion time: 22:45 Prior ECG tracings: available for review (03/31/2016 RBBB appreciated and had TWI in III) Interpretation: Normal sinus rhythm at a rate of 65 beats per minute. IA interval 144. QRS 147. QT/QTC 443/454. Good R-wave progression across the precordial leads. Patient occasionally has strange appearance of T-waves although this primarily only occurs in 1 section of the EKG though when that it appears it appears to be biphasic verses U wave. RBBB given QRS greater exse354ts; RSR' M-shaped pattern in V1-V3; wide, slurred S wave in lateral leads (I, aVL, V5-6). T-wave inversions in 3 and AVF but upright in contiguous inferior lead 2. Also T-wave inversions in V3, possibly due to lead placement. There also T-wave inversions in V4. EKG #2: Attestation: I personally reviewed and interpreted this ECG as follows: ECG completion date: 05/12/25 ECG completion time: 01:35 Interpretation: Sinus bradycardia at a rate of 57 beats per minute. IA interval 159. QRS 97. QT/QTC 423/417. Which good R-wave progression across the precordial leads. Questionable T-wave inversion versus biphasic T-waves in lead 3 but otherwise upright in normal in contiguous inferior leads 2 and AVF. No other T-wave inversions. Discharge Plan Discharge Clinical Impression: Pyuria, Biliary colic, Pancreatic cyst Patient Disposition: Home Condition: Stable Instructions: Antibiotic Form, Biliary Colic (ED), Urinary Tract Infection in Women (DC), Cyst (ED) Additional Instructions: Your CT scan did not identify a clear cause of your symptoms. They do sound consistent with biliary colic. Reassured you are feeling better after pain meds. Incidentally a pancreatic head cyst was seen. For this: Recommend a contrast enhanced, pancreas protocol abdominal CT or MR in 2 years.Your primary care physician can help arrange this. As we discussed, you had white blood cells in your urine but without identifiable bacteria. Your already on cephalexin postoperatively from her knee surgery and that should cover typical organisms but a urine culture is in process. If you are taking taking narcotic medication postoperatively that was prescribed to you, you should include a bowel regimen to reduce chance of constipation. Fiber supplement has been prescribed and miralax have been prescribed. If you do become constipated, a laxative (magnesium citrate) has also been prescribed. Return to the Emergency Department immediately if the pain worsens, develops fever, persistent and uncontrolled vomiting, or for any new symptoms or concerns. Patient Language: Lao Prescriptions: New Metamucil 3.4 gram/5.4 gram powder 1 tbsp PO DAILY Qty: 660 0RF Rx Instructions: mix into at least 8 oz of water or juice before administering polyethylene glycol 3350 [Miralax] 17 gram/dose powder 17 g PO DAILY Qty: 119 0RF magnesium citrate Solution 150 ml PO DAILY PRN (Reason: constipation) Qty: 296 0RF No Action omeprazole 20 mg capsule,delayed release(DR/EC) 20 mg PO DAILY losartan 25 mg tablet 25 mg PO DAILY amlodipine 5 mg tablet 5 mg PO BID cholecalciferol (vitamin D3) [Vitamin D3] 25 mcg (1,000 unit) Capsule 1,000 unit PO DAILY rosuvastatin 5 mg tablet 5 mg PO DAILY aspirin [Oli Low Dose Aspirin] 81 mg tablet,delayed release (DR/EC) 81 mg PO DAILY Patient Comments: HOLD for 7 days prior to surgery cephalexin 500 mg capsule 500 mg PO Q6H Qty: 8 0RF hydrocodone-acetaminophen 7.5-325 mg tablet 1 tablet PO Q4H PRN (Reason: pain) Qty: 30 0RF Follow-up/Referrals: Bharathi Corbin [Other] Stand Alone Forms: Work/School Release IP Time of Disposition: 02:57
[2025-05-11] MEDS: MORPHINE SULFATE (*CRX) 4 MG/ML INJ IV PUSH (22:42)
[2025-05-11 23:02] LABS: Troponin I < 0.012 ng/mL (0.000-0.034)
--- NOTE | 2025-05-11 23:30 | PC.NURSE ---
This RN called lab to add on labs that were added on. This RN was told by lab they will add on.
[2025-05-11 23:48] LABS: NT Pro B Type Natriuretic Pept 160 pg/mL (19.9-100)
--- NOTE | 2025-05-12 01:30 | ECG_ITS ---
Test Date: 2025-05-12 01:35:03 Measurements Intervals [place] Rate: 57 P: 46 [place]: 159 QRS: 16 QRSD: 97 T: 19 QT: 423 QTc: 413 Interpretive Statements SINUS BRADYCARDIA POSSIBLE LEFT ATRIAL ENLARGEMENT MINIMAL Q WAVES- HIGH LATERAL LEADS BORDERLINE ST ABNORMALITY- INFERIOR LEADS BORDERLINE ECG Compared to ECG 05/11/2025 22:45:08 HEART RATE HAS DECREASED Electronically Signed On 05-12-2025 06:21:55 CDT by Nghia Lira D.O.
[2025-05-12 01:38] VITALS: BP 132/75; PULSE 58; RESP 12; O2SAT 97
[2025-05-12 01:41] VITALS: BP 130/69; PULSE 56; RESP 13; O2SAT 97
[2025-05-12 02:01] VITALS: BP 121/64; PULSE 53; RESP 11; O2SAT 96
[2025-05-12 02:21] VITALS: BP 137/68; PULSE 51; RESP 12; O2SAT 97
[2025-05-12 02:42] VITALS: BP 135/70; PULSE 51; RESP 13; O2SAT 97
[2025-05-12 03:10] LABS: Troponin I < 0.012 ng/mL (0.000-0.034)
[2025-05-12 03:24] VITALS: BP 136/67; PULSE 51; RESP 11; TEMP 36.4; O2SAT 95
== END 2025-05-12 03:23 | disposition home or self-care (01) ==
PROVIDERS: Emergency Provider Student in an Organized Health Care Education/Training Program
DX: K86.2 Cyst of pancreas (principal); R82.81 Pyuria; R10.11 Right upper quadrant pain; Z98.890 Other specified postprocedural states; I34.1 Nonrheumatic mitral (valve) prolapse; I10 Essential (primary) hypertension; E78.5 Hyperlipidemia, unspecified; J45.909 Unspecified asthma, uncomplicated; K21.9 Gastro-esophageal reflux disease without esophagitis; K58.9 Irritable bowel syndrome, unspecified; Z90.710 Acquired absence of both cervix and uterus; I45.10 Unspecified right bundle-branch block; R94.31 Abnormal electrocardiogram [ECG] [EKG]; R00.1 Bradycardia, unspecified; R91.8 Other nonspecific abnormal finding of lung field; Z79.82 Long term (current) use of aspirin; Z79.899 Other long term (current) drug therapy
CPT/HCPCS: 36415; 71045; 74177; 80053; 81001; 83690; 83735; 83880; 84484; 85025; 85380; 87086; 93005; 96374; 99284; J2270; Q9967